=== PATIENT | female | born 1970 | race Caucasian/White ===

== ENCOUNTER 2018-09-22 10:26 | Observation (INO) | payer MEDICAID, SELFPAY ==
[2018-09-22] VITALS (14 sets, daily range): BP systolic 81–118; BP diastolic 57–76; PULSE 7–96; RESP 12–18; TEMP 35.9–38.2; O2SAT 96–100; BMI 23.8
--- NOTE | 2018-09-22 | PATH_ITS ---
[facility] Accession Number: [id number] . 01 Material submitted: . appendix - APPENDIX . 02 Diagnosis: Appendix, Appendectomy: Acute suppurative appendicitis with serositis. No evidence of dysplasia or malignancy. MRV/09/24/2018 . 02 Electronically signed: . Ingris Sykes MD, Pathologist NPI- [id number] . 01 Gross description: . Received in formalin, labeled appendix, is an intact appendix (length-5.2 cm, diameter-0.9 cm) with pale pink smooth shiny serosa and attached mesoappendix (up to 1.3 cm in depth). The resection margin is received stapled. The specimen is partially covered in pale yellow flaky friable exudate. The lumen contains osorio-pink solid paste-like material. The wall is up to 0.3 cm thick. No nodules, masses or lesions are identified. The resection margin is inked black. Section code: (A1) resection margin en face and three additional c s s representative sections; (A2) one-half of the bivalved tip. ([id number]) /MRV . 02 Pathologist provided ICD-10: K35.80 . 02 CPT . 113356 Performed at: 01 [facility] [address], [place], [place] [id number] MD Edin Amor MD Phone: [phone] Performed at: 02 [facility] [address] [place], [place] [id number] MD Ingris Sykes MD Phone: [phone]
[2018-09-22 10:59] LABS: Add Manual Diff / Slide Review NO; Basophils Absolute Auto 0 /uL (0-100); Basophils Percent Auto 0.3 % (0-2); Eosinophils Absolute Auto 0 /uL (0-450); Eosinophils Percent Auto 0.2 % (2-4); Hematocrit 41.2 % (36-46); Hemoglobin 14.1 g/dL (12.0-16.0); Lymphocytes Absolute Auto 1000 /uL (1100-4500); Lymphocytes Percent Auto 8.7 % (25-40); Mean Corpuscular HGB Conc 34.3 % (30-36); Mean Corpuscular Volume 87.4 fL (80-100); Monocytes Absolute Auto 900 /uL (0-900); Monocytes Percent Auto 7.8 % (3-14); Neutrophils Absolute Auto 9300 /uL (1500-7000); Platelet Count 245 X10^3/uL (150-400); Red Blood Cell Count 4.72 X10^6/uL (4.0-5.2); Red Cell Distribution Width 13.4 % (11.6-14.8); White Blood Cell Count 11.2 X10^3/uL (4.5-11.0)
[2018-09-22] MEDS: ONDANSETRON 4 MG/2 ML INJ IV (11:03)
[2018-09-22] MEDS: SODIUM CHLORIDE 0.9% 1,000 ML 1000 ML IV (11:04)
[2018-09-22 11:08] LABS: INR 1.1 (0.9-1.3); Prothrombin Time 12.2 SECONDS (10.1-12.7)
[2018-09-22 11:09] LABS: PTT Partial Thromboplastin Tim 26 SECONDS (26.4-36.2)
[2018-09-22 11:12] LABS: Alanine Aminotransferase 20 IU/L (9-52); Albumin 4.3 g/dL (3.5-5.0); Albumin Globulin Ratio 1.4 (1.0-2.8); Alkaline Phosphatase 47 U/L (38-126); Aspartate Aminotransferase 21 IU/L (14-36); BUN Creatinine Ratio 13.3 (6-22); Bilirubin Total 1.3 mg/dL (0.2-1.3); Blood Urea Nitrogen 8 mg/dL (7-17); Calcium 9.1 mg/dL (8.4-10.2); Carbon Dioxide 27 mmol/L (22-32); Chloride 99 mmol/L (98-107); Estimated Glomerular Filt Rate > 60.0 mL/min (>60); Glucose 113 mg/dL (70-100); HEMOLYSIS 17 (0-50); Lipase 22 U/L (23-300); Potassium 3.9 mmol/L (3.4-5.1); Sodium 135 mmol/L (137-145); Total Protein 7.3 g/dL (6.3-8.2)
--- NOTE | 2018-09-22 11:12 | ED.ABDPAIN ---
HPI - Abdominal Pain General Chief Complaint: Abdominal Pain Stated Complaint: Rt side abd. pain Time Seen by Provider: 09/22/18 11:08 Source: patient Mode of arrival: ambulatory Limitations: no limitations History of Present Illness HPI narrative: 47-year-old female comes in with complaint of about 15 hours of abdominal pain. She noticed start about 4:00 p.m. yesterday. Sort of right lower quadrant, little bit of slight radiation to the back on both sides in a little bit suprapubically. Patient has not had fevers. She has not had chills. She did check with a thermometer at home. She has been slightly nauseated. She had 1 episode of emesis. She has not been particularly hungry. She denies any changes with bowel movements or urination she did have 1 good bowel movement earlier this morning. She states overnight the pain was present but maybe improved a little bit and that has worsened somewhat. She denies any frequency urgency or dysuria. No vaginal bleeding or discharge. She has not had any prior surgeries, she does not take any medications regularly. She denies any tobacco. She does live on [facility]. Her PCP is Nena Watson although she has not seen her [id number]. Related Data Previous Rx's Medication Instructions Recorded acetaminophen 1,000 mg PO Q6H 4 Days #32 cap 09/22/18 oxycodone See Rx Instructions .ROUTE 09/22/18 .COMPLEX PRN #10 tab polyethylene glycol 3350 [Miralax] 17 gram PO DAILY #119 gram 09/22/18 Allergies Allergy/AdvReac Type Severity Reaction Status Date / Time No Known Drug Allergies Allergy Verified 09/22/18 10:39 Review of Systems Review of Systems ROS Unobtainable: All systems reviewed & are unremarkable except as noted in HPI and below Constitutional Denies chills, Denies fever(s), Denies lethargy and Denies weakness Cardiovascular Denies chest pain and Denies dyspnea Respiratory Denies dyspnea Gastrointestinal Gastrointestinal: Reports abdominal pain (RLQ ), Denies melena, Denies hematochezia, Denies change in bowel habits, Denies constipation, Denies diarrhea, Reports nausea and Reports vomiting (x1) Genitourinary Reports as per HPI, Denies abnormal vaginal bleeding, Denies hematuria, Reports urinary frequency (patient states she always has.), Denies dysuria, Reports flank pain (mild bilaterally), Denies urinary incontinence, Denies urinary hesitancy, Denies urinary urgency, Denies vaginal discharge and Denies vaginal odor Musculoskeletal Denies back pain Neurologic Denies weakness FORMERLY [facility], 1928–1983 Medical History Healthy adult (Acute) Surgical History History of third molar tooth extraction Family History (Updated 05/14/16 @ 00:00 by Conversion Provider) Father Age: 79 High cholesterol Mother Age: 77 Lymphoma, unspecified body region, unspecified lymphoma type Social History Smoking Status: Never smoker Family History Father Age: 79 High cholesterol Mother Age: 77 Lymphoma, unspecified body region, unspecified lymphoma type Social History household members: spouse and children Smoking Status: Never smoker Comment: Lives on [facility]. Exam Narrative Exam Narrative: GENERAL: Alert and oriented x three, well-nourished, well-appearing female in mild to moderate distress. HEENT: Head normocephalic, atraumatic, EOMI, pupils reactive, face symmetric, moist mucous membranes NECK: Supple, full range of motion CARDIOVASCULAR: Regular rate and rhythm without murmurs, rubs or gallops. RESPIRATORY: Breath sounds equal bilaterally, no wheezes rales or rhonchi. ABDOMEN: Soft, patient has some mild tenderness periumbilical as well as suprapubically, I would say moderate on the right lower quadrant. Normoactive bowel sounds all 4 quadrants. No guarding or rebound, rigidity, no mass : No CVA tenderness EXTREMITIES: Normal range of motion, no clubbing or edema. Neurovascularly intact NEUROLOGICAL: Cranial nerves II through XII grossly intact. Moving all extremities SKIN: Warm, dry, no petechiae, no rashes or lesions. Initial Vital Signs Initial Vital Signs: Vital Signs Temperature 98.6 F 09/22/18 10:26 Course Orders Ordered: ED Orders 09/22/18 10:30 Urine Microscopic Stat 09/22/18 10:52 Complete Blood Count AUTO DIFF Stat Comprehensive Metabolic Panel Stat Lipase Stat Partial Thromboplastin Time Stat Prothrombin Time INR Stat 09/22/18 11:18 US abdomen limited Stat Hydrocodone Bitart/Acetaminophen ([place] 5/325) 1 tab PO Q30MIN PRN PRN Reason: Mild or moderate pain Fentanyl (Sublimaze) 50 mcg IV Q5MIN PRN PRN Reason: Pain, Moderate (4-6) Hydromorphone HCl (Dilaudid) 0.5 mg IV Q5MIN PRN PRN Reason: Pain, Moderate (4-6) Lactated Ringer's (Lactated Ringers) 1,000 mls @ 42 mls/hr IV NOW ONE Stop: 09/23/18 14:21 Last Admin: 09/22/18 16:24 Dose: 42 mls/hr Infusion: 09/22/18 16:24 Dose: 42 mls/hr Admin: 09/22/18 14:35 Dose: 42 mls/hr Lactated Ringer's (Lactated Ringers) 1,000 mls @ 42 mls/hr IV CONT MOOK Lactated Ringer's (Lactated Ringers) 1,000 mls @ 42 mls/hr IV CONT MOOK Meperidine HCl (Demerol) 25 mg IV Q5MIN PRN PRN Reason: Pain or shivering Ondansetron HCl (Zofran) 4 mg IV NOW PRN PRN Reason: Nausea And Vomiting Oxycodone/Acetaminophen (Percocet 5/325) 1 tab PO Q30MIN PRN PRN Reason: Mild or moderate pain Discontinued Medications Bupivacaine HCl/Epinephrine Bitart (Sensorcaine 0.25% W/ Epi (Pf)) 30 ml INJ NOW ONE Stop: 09/22/18 16:16 Last Admin: 09/22/18 16:16 Dose: 30 ml Sodium Chloride (Normal Saline 0.9%) 1,000 mls @ 1,000 mls/hr IV BOLUS ONE Stop: 09/22/18 12:01 Last Infusion: 09/22/18 12:33 Dose: 0 mls/hr Admin: 09/22/18 11:04 Dose: 1,000 mls/hr Metronidazole (Flagyl) 500 mg in 100 mls @ 100 mls/hr IV NOW ONE Stop: 09/22/18 13:03 Last Infusion: 09/22/18 14:27 Dose: 0 mls/hr Admin: 09/22/18 13:34 Dose: 100 mls/hr Ceftriaxone Sodium/Dextrose (Rocephin) 2 gm in 50 mls @ 100 mls/hr IV NOW ONE Stop: 09/22/18 12:33 Last Infusion: 09/22/18 12:58 Dose: 0 mls/hr Admin: 09/22/18 12:29 Dose: 100 mls/hr Ketorolac Tromethamine (Toradol) 30 mg IV NOW ONE Stop: 09/22/18 11:19 Last Admin: 09/22/18 11:21 Dose: 30 mg Ondansetron HCl (Zofran) 4 mg IV NOW ONE Stop: 09/22/18 11:03 Last Admin: 09/22/18 11:03 Dose: 4 mg Vital Signs - 8 hr 09/22/18 11:23 09/22/18 12:58 09/22/18 13:05 Temperature 98.6 F Pulse Rate 68 71 64 Respiratory Rate 12 12 16 Blood Pressure 99/64 Blood Pressure [Left Arm] 118/76 107/68 Pulse Oximetry 99 98 98 09/22/18 14:29 09/22/18 17:00 09/22/18 17:04 Temperature 100.7 F H 96.7 F L Pulse Rate 69 96 H 86 Respiratory Rate 18 13 13 Blood Pressure 102/69 102/72 90/63 Blood Pressure [Left Arm] Pulse Oximetry 100 99 98 09/22/18 17:09 09/22/18 17:11 09/22/18 17:15 Temperature Pulse Rate 86 96 H 80 Respiratory Rate 12 15 Blood Pressure 81/57 L 94/64 98/68 Blood Pressure [Left Arm] Pulse Oximetry 100 96 09/22/18 17:25 09/22/18 17:40 09/22/18 18:10 Temperature 97.3 F L 98.1 F 99.1 F Pulse Rate 7 L 73 73 Respiratory Rate 12 16 16 Blood Pressure 109/66 111/72 100/63 Blood Pressure [Left Arm] Pulse Oximetry 100 97 96 MDM - Abdominal Pain Lab Data Attestation: I reviewed the patient's lab results. Result diagrams: 09/22/18 10:52 09/22/18 10:52 Lab Results 09/22/18 09/22/18 09/22/18 Range/Units 10:30 10:52 10:52 WBC 11.2 H (4.5-11.0) X10^3/uL RBC 4.72 (4.0-5.2) X10^6/uL Hgb 14.1 (12.0-16.0) g/dL Hct 41.2 (36-46) % MCV 87.4 (80-100) fL MCH 30.0 (26-34) PG MCHC 34.3 (30-36) % RDW 13.4 (11.6-14.8) % Plt Count 245 (150-400) X10^3/uL Neut % (Auto) 83.0 H (50-75) % Lymph % (Auto) 8.7 L (25-40) % [place] % (Auto) 7.8 (3-14) % Eos % (Auto) 0.2 L (2-4) % Baso % (Auto) 0.3 (0-2) % Neut # (Auto) 9300 H (8801-5480) /uL Lymph # (Auto) 1000 L (2737-9593) /uL [place] # (Auto) 900 (0-900) /uL Eos # (Auto) 0 (0-450) /uL Baso # (Auto) 0 (0-100) /uL PT 12.2 (10.1-12.7) SECONDS INR 1.1 (0.9-1.3) APTT 26 L (26.4-36.2) SECONDS Sodium (137-145) mmol/L Potassium (3.4-5.1) mmol/L Chloride (98-107) mmol/L Carbon Dioxide (22-32) mmol/L BUN (7-17) mg/dL Creatinine (0.52-1.04) mg/dL Estimated GFR (>60) mL/min BUN/Creatinine Ratio (6-22) Glucose (70-100) mg/dL Calcium (8.4-10.2) mg/dL Total Bilirubin (0.2-1.3) mg/dL AST (14-36) IU/L ALT (9-52) IU/L Alkaline Phosphatase (38-126) U/L Total Protein (6.3-8.2) g/dL Albumin (3.5-5.0) g/dL Globulin (1.7-4.1) g/dL Albumin/Globulin Ratio (1.0-2.8) Lipase (23-300) U/L Urine RBC None seen (0-5/HPF) Urine WBC None seen (0-5/HPF) Urine Bacteria None seen (None) Urine Mucus 2+ H (Negative) Ur Culture Indicated? Cult not indicated 09/22/18 Range/Units 10:52 WBC (4.5-11.0) X10^3/uL RBC (4.0-5.2) X10^6/uL Hgb (12.0-16.0) g/dL Hct (36-46) % MCV (80-100) fL MCH (26-34) PG MCHC (30-36) % RDW (11.6-14.8) % Plt Count (150-400) X10^3/uL Neut % (Auto) (50-75) % Lymph % (Auto) (25-40) % [place] % (Auto) (3-14) % Eos % (Auto) (2-4) % Baso % (Auto) (0-2) % Neut # (Auto) (2582-6082) /uL Lymph # (Auto) (9297-4328) /uL [place] # (Auto) (0-900) /uL Eos # (Auto) (0-450) /uL Baso # (Auto) (0-100) /uL PT (10.1-12.7) SECONDS INR (0.9-1.3) APTT (26.4-36.2) SECONDS Sodium 135 L (137-145) mmol/L Potassium 3.9 (3.4-5.1) mmol/L Chloride 99 (98-107) mmol/L Carbon Dioxide 27 (22-32) mmol/L BUN 8 (7-17) mg/dL Creatinine 0.60 (0.52-1.04) mg/dL Estimated GFR > 60.0 (>60) mL/min BUN/Creatinine Ratio 13.3 (6-22) Glucose 113 H (70-100) mg/dL Calcium 9.1 (8.4-10.2) mg/dL Total Bilirubin 1.3 (0.2-1.3) mg/dL AST 21 (14-36) IU/L ALT 20 (9-52) IU/L Alkaline Phosphatase 47 (38-126) U/L Total Protein 7.3 (6.3-8.2) g/dL Albumin 4.3 (3.5-5.0) g/dL Globulin 3.0 (1.7-4.1) g/dL Albumin/Globulin Ratio 1.4 (1.0-2.8) Lipase 22 L (23-300) U/L Urine RBC (0-5/HPF) Urine WBC (0-5/HPF) Urine Bacteria (None) Urine Mucus (Negative) Ur Culture Indicated? Point of care testing: Point of Care Testing Test Results Negative Urine Dip Bedside Urine Glucose Negative Bedside Urine Bilirubin - Negative Bedside Urine Ketone +++ 80 Urine Specific [place] 1.025 Bedside Urine Occult Blood +/- Bedside Urine pH 6.0 Bedside Urine Protein +/- 15 Bedside Urine Urobilinogen +/- 1mg Bedside Urine Nitrite - Negative Bedside Urine Leukocytes - Negative Esterase Imaging Data US - abdomen: Radiologist's impression: [address] [address] Ultrasound Report Signed Patient: Ro Montenegro#: [id number] : 1970Acct:[id number] Age/Sex: 47 / FDate of Service: 09/22/18 Loc: ED Accession Number: [id number] Procedure: US abdomen limited Ordering Provider: Brenda Mesa D.O. PROCEDURE: US ABDOMEN LIMITED INDICATIONS: RIGHT LOWER QUADRANT PAIN, ?APPENDICITIS TECHNIQUE: Real-time focused scanning was performed of the abdomen with attention to the appendix, with image documentation. COMPARISON: None. FINDINGS: Appendix visualization: Abnormal appendix partially visualized, distally. The appendix near the cecum could not be seen due to overlying bowel gas. Appendix measurements: Up to 12 mm maximal axial dimension. Associated findings: Echogenic fat: Present Appendiceal compressibility: Absent Appendicoliths: Present Nearby free fluid: Present Lymphadenopathy: Absent Tenderness on exam: Present IMPRESSION: Acute appendicitis, distended to up to 12 mm in diameter with appendicoliths in place. Surgical consultation is recommended. The presence of the pedicle is reportedly increases the risk for early spontaneous appendiceal rupture. Dictated by: Seb Smith M.D. on 09/22/2018 at 12:01 Approved by: Seb Smith M.D. on 09/22/2018 at 12:02 [facility] Narrative Medical decision making narrative: Patient lab work shows a slightly elevated white count, she is symptoms are concerning for appendicitis but she has a little bit of flank pain. Urine is negative as well as point of care urine. Ultrasound of the abdomen was ordered and they were able to see changes consistent with appendicitis. Patient has had Toradol and fluid with improvement of her symptoms. I spoke with Dr. Hernandes from general surgery he accepts. He does ask for 2 g of Rocephin as well as Flagyl 500 IV. These were ordered here in the department. Discharge Plan Departure Patient Disposition: Admitted as Observation Clinical Impression: Acute appendicitis Discharge Date/Time: 09/22/18 13:11 Interventions: ED Discharge Assessment Last Done: 09/22/18 13:11 Admit Date/Time: 09/22/18 12:21 Admit Provider: Rosas Reid
--- NOTE | 2018-09-22 11:18 | DI.US.S_ITS ---
PROCEDURE: US ABDOMEN LIMITED INDICATIONS: RIGHT LOWER QUADRANT PAIN, ?APPENDICITIS TECHNIQUE: Real-time focused scanning was performed of the abdomen with attention to the appendix, with image documentation. COMPARISON: None. FINDINGS: Appendix visualization: Abnormal appendix partially visualized, distally. The appendix near the cecum could not be seen due to overlying bowel gas. Appendix measurements: Up to 12 mm maximal axial dimension. Associated findings: Echogenic fat: Present Appendiceal compressibility: Absent Appendicoliths: Present Nearby free fluid: Present Lymphadenopathy: Absent Tenderness on exam: Present IMPRESSION: Acute appendicitis, distended to up to 12 mm in diameter with appendicoliths in place. Surgical consultation is recommended. The presence of the pedicle is reportedly increases the risk for early spontaneous appendiceal rupture. Dictated by: Seb Smith M.D. on 09/22/2018 at 12:01 Approved by: Seb Smith M.D. on 09/22/2018 at 12:02
[2018-09-22] MEDS: KETOROLAC 60 MG/2 ML VIAL 30 MG IV (11:21)
[2018-09-22 11:22] LABS: Bacteria Urine None Seen; RBC Urine None Seen (0-5/HPF); WBC Urine None Seen (0-5/HPF)
--- NOTE | 2018-09-22 11:23 | ED_ITS ---
HPI - Abdominal Pain General Chief Complaint: Abdominal Pain Stated Complaint: Rt side abd. pain Time Seen by Provider: 09/22/18 11:08 Source: patient Mode of arrival: ambulatory Limitations: no limitations History of Present Illness HPI narrative: 47-year-old female comes in with complaint of about 15 hours of abdominal pain. She noticed start about 4:00 p.m. yesterday. Sort of right lower quadrant, little bit of slight radiation to the back on both sides in a little bit suprapubically. Patient has not had fevers. She has not had chills. She did check with a thermometer at home. She has been slightly nauseated. She had 1 episode of emesis. She has not been particularly hungry. She denies any changes with bowel movements or urination she did have 1 good bowel movement earlier this morning. She states overnight the pain was present but maybe improved a little bit and that has worsened somewhat. She denies any frequency urgency or dysuria. No vaginal bleeding or discharge. She has not had any prior surgeries, she does not take any medications regularly. She denies any tobacco. She does live on [facility]. Her PCP is Nena Watson although she has not seen her [id number]. Related Data Previous Rx's Medication Instructions Recorded acetaminophen 1,000 mg PO Q6H 4 Days #32 cap 09/22/18 oxycodone See Rx Instructions .ROUTE 09/22/18 .COMPLEX PRN #10 tab polyethylene glycol 3350 [Miralax] 17 gram PO DAILY #119 gram 09/22/18 Allergies Allergy/AdvReac Type Severity Reaction Status Date / Time No Known Drug Allergies Allergy Verified 09/22/18 10:39 Review of Systems Review of Systems ROS Unobtainable: All systems reviewed & are unremarkable except as noted in HPI and below Constitutional Denies chills, Denies fever(s), Denies lethargy and Denies weakness Cardiovascular Denies chest pain and Denies dyspnea Respiratory Denies dyspnea Gastrointestinal Gastrointestinal: Reports abdominal pain (RLQ ), Denies melena, Denies hematochezia, Denies change in bowel habits, Denies constipation, Denies diarrhea, Reports nausea and Reports vomiting (x1) Genitourinary Reports as per HPI, Denies abnormal vaginal bleeding, Denies hematuria, Reports urinary frequency (patient states she always has.), Denies dysuria, Reports flank pain (mild bilaterally), Denies urinary incontinence, Denies urinary hesitancy, Denies urinary urgency, Denies vaginal discharge and Denies vaginal odor Musculoskeletal Denies back pain Neurologic Denies weakness [facility] Medical History Healthy adult (Acute) Surgical History History of third molar tooth extraction Family History (Updated 05/14/16 @ 00:00 by Conversion Provider) Father Age: 79 High cholesterol Mother Age: 77 Lymphoma, unspecified body region, unspecified lymphoma type Social History Smoking Status: Never smoker Family History Father Age: 79 High cholesterol Mother Age: 77 Lymphoma, unspecified body region, unspecified lymphoma type Social History household members: spouse and children Smoking Status: Never smoker Comment: Lives on [facility]. Exam Narrative Exam Narrative: GENERAL: Alert and oriented x three, well-nourished, well- appearing female in mild to moderate distress. HEENT: Head normocephalic, atraumatic, EOMI, pupils reactive, face symmetric, moist mucous membranes NECK: Supple, full range of motion CARDIOVASCULAR: Regular rate and rhythm without murmurs, rubs or gallops. RESPIRATORY: Breath sounds equal bilaterally, no wheezes rales or rhonchi. ABDOMEN: Soft, patient has some mild tenderness periumbilical as well as suprapubically, I would say moderate on the right lower quadrant. Normoactive bowel sounds all 4 quadrants. No guarding or rebound, rigidity, no mass : No CVA tenderness EXTREMITIES: Normal range of motion, no clubbing or edema. Neurovascularly intact NEUROLOGICAL: Cranial nerves II through XII grossly intact. Moving all extremities SKIN: Warm, dry, no petechiae, no rashes or lesions. Initial Vital Signs Initial Vital Signs: Vital Signs Temperature 98.6 F 09/22/18 10:26 Course Orders Ordered: ED Orders 09/22/18 10:30 Urine Microscopic Stat 09/22/18 10:52 Complete Blood Count AUTO DIFF Stat Comprehensive Metabolic Panel Stat Lipase Stat Partial Thromboplastin Time Stat Prothrombin Time INR Stat 09/22/18 11:18 US abdomen limited Stat Hydrocodone Bitart/Acetaminophen ([place] 5/325) 1 tab PO Q30MIN PRN PRN Reason: Mild or moderate pain Fentanyl (Sublimaze) 50 mcg IV Q5MIN PRN PRN Reason: Pain, Moderate (4-6) Hydromorphone HCl (Dilaudid) 0.5 mg IV Q5MIN PRN PRN Reason: Pain, Moderate (4-6) Lactated Ringer's (Lactated Ringers) 1,000 mls @ 42 mls/hr IV NOW ONE Stop: 09/23/18 14:21 Last Admin: 09/22/18 16:24 Dose: 42 mls/hr Infusion: 09/22/18 16:24 Dose: 42 mls/hr Admin: 09/22/18 14:35 Dose: 42 mls/hr Lactated Ringer's (Lactated Ringers) 1,000 mls @ 42 mls/hr IV CONT MOOK Lactated Ringer's (Lactated Ringers) 1,000 mls @ 42 mls/hr IV CONT MOOK Meperidine HCl (Demerol) 25 mg IV Q5MIN PRN PRN Reason: Pain or shivering Ondansetron HCl (Zofran) 4 mg IV NOW PRN PRN Reason: Nausea And Vomiting Oxycodone/Acetaminophen (Percocet 5/325) 1 tab PO Q30MIN PRN PRN Reason: Mild or moderate pain Discontinued Medications Bupivacaine HCl/Epinephrine Bitart (Sensorcaine 0.25% W/ Epi (Pf)) 30 ml INJ NOW ONE Stop: 09/22/18 16:16 Last Admin: 09/22/18 16:16 Dose: 30 ml Sodium Chloride (Normal Saline 0.9%) 1,000 mls @ 1,000 mls/hr IV BOLUS ONE Stop: 09/22/18 12:01 Last Infusion: 09/22/18 12:33 Dose: 0 mls/hr Admin: 09/22/18 11:04 Dose: 1,000 mls/hr Metronidazole (Flagyl) 500 mg in 100 mls @ 100 mls/hr IV NOW ONE Stop: 09/22/18 13:03 Last Infusion: 09/22/18 14:27 Dose: 0 mls/hr Admin: 09/22/18 13:34 Dose: 100 mls/hr Ceftriaxone Sodium/Dextrose (Rocephin) 2 gm in 50 mls @ 100 mls/hr IV NOW ONE Stop: 09/22/18 12:33 Last Infusion: 09/22/18 12:58 Dose: 0 mls/hr Admin: 09/22/18 12:29 Dose: 100 mls/hr Ketorolac Tromethamine (Toradol) 30 mg IV NOW ONE Stop: 09/22/18 11:19 Last Admin: 09/22/18 11:21 Dose: 30 mg Ondansetron HCl (Zofran) 4 mg IV NOW ONE Stop: 09/22/18 11:03 Last Admin: 09/22/18 11:03 Dose: 4 mg Vital Signs - 8 hr 09/22/18 11:23 09/22/18 12:58 09/22/18 13:05 Temperature 98.6 F Pulse Rate 68 71 64 Respiratory Rate 12 12 16 Blood Pressure 99/64 Blood Pressure [Left Arm] 118/76 107/68 Pulse Oximetry 99 98 98 09/22/18 14:29 09/22/18 17:00 09/22/18 17:04 Temperature 100.7 F H 96.7 F L Pulse Rate 69 96 H 86 Respiratory Rate 18 13 13 Blood Pressure 102/69 102/72 90/63 Blood Pressure [Left Arm] Pulse Oximetry 100 99 98 09/22/18 17:09 09/22/18 17:11 09/22/18 17:15 Temperature Pulse Rate 86 96 H 80 Respiratory Rate 12 15 Blood Pressure 81/57 L 94/64 98/68 Blood Pressure [Left Arm] Pulse Oximetry 100 96 09/22/18 17:25 09/22/18 17:40 09/22/18 18:10 Temperature 97.3 F L 98.1 F 99.1 F Pulse Rate 7 L 73 73 Respiratory Rate 12 16 16 Blood Pressure 109/66 111/72 100/63 Blood Pressure [Left Arm] Pulse Oximetry 100 97 96 MDM - Abdominal Pain Lab Data Attestation: I reviewed the patient's lab results. Result diagrams: 09/22/18 10:52 09/22/18 10:52 Lab Results 09/22/18 09/22/18 09/22/18 Range/Units 10:30 10:52 10:52 WBC 11.2 H (4.5-11.0) X10^3/uL RBC 4.72 (4.0-5.2) X10^6/uL Hgb 14.1 (12.0-16.0) g/dL Hct 41.2 (36-46) % MCV 87.4 (80-100) fL MCH 30.0 (26-34) PG MCHC 34.3 (30-36) % RDW 13.4 (11.6-14.8) % Plt Count 245 (150-400) X10^3/uL Neut % (Auto) 83.0 H (50-75) % Lymph % (Auto) 8.7 L (25-40) % [place] % (Auto) 7.8 (3-14) % Eos % (Auto) 0.2 L (2-4) % Baso % (Auto) 0.3 (0-2) % Neut # (Auto) 9300 H (1147-9314) /uL Lymph # (Auto) 1000 L (0833-2267) /uL [place] # (Auto) 900 (0-900) /uL Eos # (Auto) 0 (0-450) /uL Baso # (Auto) 0 (0-100) /uL PT 12.2 (10.1-12.7) SECONDS INR 1.1 (0.9-1.3) APTT 26 L (26.4-36.2) SECONDS Sodium (137-145) mmol/L Potassium (3.4-5.1) mmol/L Chloride (98-107) mmol/L Carbon Dioxide (22-32) mmol/L BUN (7-17) mg/dL Creatinine (0.52-1.04) mg/dL Estimated GFR (>60) mL/min BUN/Creatinine Ratio (6-22) Glucose (70-100) mg/dL Calcium (8.4-10.2) mg/dL Total Bilirubin (0.2-1.3) mg/dL AST (14-36) IU/L ALT (9-52) IU/L Alkaline Phosphatase (38-126) U/L Total Protein (6.3-8.2) g/dL Albumin (3.5-5.0) g/dL Globulin (1.7-4.1) g/dL Albumin/Globulin Ratio (1.0-2.8) Lipase (23-300) U/L Urine RBC None seen (0-5/HPF) Urine WBC None seen (0-5/HPF) Urine Bacteria None seen (None) Urine Mucus 2+ H (Negative) Ur Culture Indicated? Cult not indicated 09/22/18 Range/Units 10:52 WBC (4.5-11.0) X10^3/uL RBC (4.0-5.2) X10^6/uL Hgb (12.0-16.0) g/dL Hct (36-46) % MCV (80-100) fL MCH (26-34) PG MCHC (30-36) % RDW (11.6-14.8) % Plt Count (150-400) X10^3/uL Neut % (Auto) (50-75) % Lymph % (Auto) (25-40) % [place] % (Auto) (3-14) % Eos % (Auto) (2-4) % Baso % (Auto) (0-2) % Neut # (Auto) (5559-4787) /uL Lymph # (Auto) (9968-1528) /uL [place] # (Auto) (0-900) /uL Eos # (Auto) (0-450) /uL Baso # (Auto) (0-100) /uL PT (10.1-12.7) SECONDS INR (0.9-1.3) APTT (26.4-36.2) SECONDS Sodium 135 L (137-145) mmol/L Potassium 3.9 (3.4-5.1) mmol/L Chloride 99 (98-107) mmol/L Carbon Dioxide 27 (22-32) mmol/L BUN 8 (7-17) mg/dL Creatinine 0.60 (0.52-1.04) mg/dL Estimated GFR > 60.0 (>60) mL/min BUN/Creatinine Ratio 13.3 (6-22) Glucose 113 H (70-100) mg/dL Calcium 9.1 (8.4-10.2) mg/dL Total Bilirubin 1.3 (0.2-1.3) mg/dL AST 21 (14-36) IU/L ALT 20 (9-52) IU/L Alkaline Phosphatase 47 (38-126) U/L Total Protein 7.3 (6.3-8.2) g/dL Albumin 4.3 (3.5-5.0) g/dL Globulin 3.0 (1.7-4.1) g/dL Albumin/Globulin Ratio 1.4 (1.0-2.8) Lipase 22 L (23-300) U/L Urine RBC (0-5/HPF) Urine WBC (0-5/HPF) Urine Bacteria (None) Urine Mucus (Negative) Ur Culture Indicated? Point of care testing: Point of Care Testing Test Results Negative Urine Dip Bedside Urine Glucose Negative Bedside Urine Bilirubin - Negative Bedside Urine Ketone +++ 80 Urine Specific [place] 1.025 Bedside Urine Occult Blood +/- Bedside Urine pH 6.0 Bedside Urine Protein +/- 15 Bedside Urine Urobilinogen +/- 1mg Bedside Urine Nitrite - Negative Bedside Urine Leukocytes - Negative Esterase Imaging Data US - abdomen: Radiologist's impression: [address] [address] Ultrasound Report Signed Patient: Ro Montenegro#: [id number] : 1970Acct:[id number] Age/Sex: 47 / FDate of Service: 09/22/18 Loc: ED Accession Number: [id number] Procedure: US abdomen limited Ordering Provider: Brenda Mesa D.O. PROCEDURE: US ABDOMEN LIMITED INDICATIONS: RIGHT LOWER QUADRANT PAIN, ?APPENDICITIS TECHNIQUE: Real-time focused scanning was performed of the abdomen with attention to the appendix, with image documentation. COMPARISON: None. FINDINGS: Appendix visualization: Abnormal appendix partially visualized, distally. The appendix near the cecum could not be seen due to overlying bowel gas. Appendix measurements: Up to 12 mm maximal axial dimension. Associated findings: Echogenic fat: Present Appendiceal compressibility: Absent Appendicoliths: Present Nearby free fluid: Present Lymphadenopathy: Absent Tenderness on exam: Present IMPRESSION: Acute appendicitis, distended to up to 12 mm in diameter with appendicoliths in place. Surgical consultation is recommended. The presence of the pedicle is reportedly increases the risk for early spontaneous appendiceal rupture. Dictated by: Seb Smith M.D. on 09/22/2018 at 12:01 Approved by: Seb Smith M.D. on 09/22/2018 at 12:02 [facility] Narrative Medical decision making narrative: Patient lab work shows a slightly elevated white count, she is symptoms are concerning for appendicitis but she has a little bit of flank pain. Urine is negative as well as point of care urine. Ultrasound of the abdomen was ordered and they were able to see changes consistent with appendicitis. Patient has had Toradol and fluid with improvement of her symptoms. I spoke with Dr. Hernandes from general surgery he accepts. He does ask for 2 g of Rocephin as well as Flagyl 500 IV. These were ordered here in the department. Discharge Plan Departure Patient Disposition: Admitted as Observation Clinical Impression: Acute appendicitis Discharge Date/Time: 09/22/18 13:11 Interventions: ED Discharge Assessment Last Done: 09/22/18 13:11 Admit Date/Time: 09/22/18 12:21 Admit Provider: Rosas Reid
[2018-09-22 11:26] LABS: Culture Indicated Urine Cult Not Indicated; Mucus Urine 2+ (Negative)
[2018-09-22] MEDS: CEFTRIAXONE 2 GM/50 ML FROZ.PIGGY IV (12:29)
[2018-09-22] MEDS: metroNIDAZOLE 500 MG/100 ML PIGGYBACK 100 MG IV (13:34)
--- NOTE | 2018-09-22 13:58 | PC.NURSE ---
Patient oriented to room and call light. States her abdomen is mill tender washing but feeling more comfortable after the pain medication given in ER. NPO. Plan for surgery today. IV antibiotics as ordered. Patient has friend at bedside. Will continue to follow.
--- NOTE | 2018-09-22 14:25 | PC.NURSE ---
patient picked up for surgery.
[2018-09-22] MEDS: LACTATED RINGERS 1,000 ML 42 ML IV ×2 (14:35→16:24)
--- NOTE | 2018-09-22 14:46 | PM.HP.1 ---
History of Present Illness Date Patient Seen: 09/22/18 Time Patient Seen: 12:00 Chief complaint: Rt side abd. pain Narrative: 27-year-old healthy woman presents with progressive right lower quadrant pain. Patient began yesterday at 5:00 p.m. was generalized within the abdomen around midnight localized to the right lower quadrant and became more significant. Pain is now considerable worsened with movement including jostling, walking. Associated nausea and vomiting. No radiation. In the emergency department patient found to have leukocytosis of 11.12, and on ultrasound a noncompressible appendix dilated to 12 mm. Presence of a fecalith. Patient History Medical History Healthy adult (Acute) Surgical History History of third molar tooth extraction Family History (Updated 05/14/16 @ 00:00 by Conversion Provider) Father Age: 79 High cholesterol Mother Age: 77 Lymphoma, unspecified body region, unspecified lymphoma type Social History Smoking Status: Never smoker Family & Social History Family History Father Age: 79 High cholesterol Mother Age: 77 Lymphoma, unspecified body region, unspecified lymphoma type Social History: household members spouse,children Prior Living Arrangements House Safety & Behavioral: Feels Safe in Current Yes Environment Been Physically Hurt or No Threatened By a Person Suicidal Ideation Description None Suicide Plan Description No Plan Tobacco & Substance use: Smoking Status Never smoker alcohol intake frequency holiday/special occasion Substance Use Type does not use Meds Home Medications Medication Instructions Recorded Confirmed Type No Known Home Medications 09/22/18 09/22/18 History Allergies Allergy/AdvReac Type Severity Reaction Status Date / Time No Known Drug Allergies Allergy Verified 09/22/18 10:39 Review of Systems Constitutional Constitutional: Denies fever(s) Eyes Eyes: Denies bulging eyes ENT Ears, Nose, Mouth, and Throat: No lip swelling Cardiovascular Cardiovascular: Denies generalize swelling Respiratory Respiratory: Denies stridor Gastrointestinal Gastrointestinal: Denies coffee ground emesis Musculoskeletal Musculoskeletal: Denies loss of height Integumentary/Breasts Skin/Breast: Denies wounds Neurologic Neurologic: Denies abnormal speech and Denies confusion Psychiatric Psychiatric: Denies confusion Endocrine Endocrine: Denies deepening of the voice Hematologic/Lymphatic Hematologic/Lymphatic: Denies lymphadenopathy Allergic/Immunologic Allergic/Immunologic: Denies lip swelling Exam Vital Signs (past 8 hours): - 09/22/18 10:26 09/22/18 10:37 09/22/18 11:23 Temperature 98.6 F Pulse Rate 70 68 Respiratory Rate 15 12 Blood Pressure Blood Pressure [Left Arm] 116/74 118/76 Pulse Oximetry 97 99 09/22/18 12:58 09/22/18 13:05 09/22/18 14:29 Temperature 98.6 F 100.7 F H Pulse Rate 71 64 69 Respiratory Rate 12 16 18 Blood Pressure 99/64 102/69 Blood Pressure [Left Arm] 107/68 Pulse Oximetry 98 98 100 Oxygen Delivery Method Room Air Oxygen Flow Rate 0 Const General: cooperative and healthy appearing Orientation: alert [facility] Head: normal to inspection Nose: nares normal Mouth: oral mucosae normal and lip normal Eyes Eyelids: eyelids normal Conjunctivae: conjunctivae normal Sclera: sclerae normal Neck Neck: supple and other (No thyromegally) Chest Chest: other (LCTAB , regular respiratory effort) Cardio Rhythm: regular rhythm Heart Sounds: S1 normal, S2 normal, no gallops, no murmurs and no rubs GI Other: Abdomen without surgical scars, nondistended, dull to percussion, tender to percussion the right lower quadrant. No hepatosplenomegaly. Normoactive bowel sounds. Tenderness at McBurney point. Positive Rovsing sign. Negative bed shake test, no reflexive guarding Skin General: no rashes or lesions noted Neuro General: alert and awake Psych Appearance: grossly normal Affect: normal affect Objective Labs Result Diagrams: 09/22/18 10:52 09/22/18 10:52 Labs: Laboratory Results - last 24 hr 09/22/18 09/22/18 09/22/18 10:30 10:52 10:52 WBC 11.2 H RBC 4.72 Hgb 14.1 Hct 41.2 MCV 87.4 MCH 30.0 MCHC 34.3 RDW 13.4 Plt Count 245 Neut % (Auto) 83.0 H Lymph % (Auto) 8.7 L [place] % (Auto) 7.8 Eos % (Auto) 0.2 L Baso % (Auto) 0.3 Neut # (Auto) 9300 H Lymph # (Auto) 1000 L [place] # (Auto) 900 Eos # (Auto) 0 Baso # (Auto) 0 PT 12.2 INR 1.1 APTT 26 L Sodium Potassium Chloride Carbon Dioxide BUN Creatinine Estimated GFR BUN/Creatinine Ratio Glucose Calcium Total Bilirubin AST ALT Alkaline Phosphatase Total Protein Albumin Globulin Albumin/Globulin Ratio Lipase Urine RBC None seen Urine WBC None seen Urine Bacteria None seen Urine Mucus 2+ H Ur Culture Indicated? Cult not indicated 09/22/18 10:52 WBC RBC Hgb Hct MCV MCH MCHC RDW Plt Count Neut % (Auto) Lymph % (Auto) [place] % (Auto) Eos % (Auto) Baso % (Auto) Neut # (Auto) Lymph # (Auto) [place] # (Auto) Eos # (Auto) Baso # (Auto) PT INR APTT Sodium 135 L Potassium 3.9 Chloride 99 Carbon Dioxide 27 BUN 8 Creatinine 0.60 Estimated GFR > 60.0 BUN/Creatinine Ratio 13.3 Glucose 113 H Calcium 9.1 Total Bilirubin 1.3 AST 21 ALT 20 Alkaline Phosphatase 47 Total Protein 7.3 Albumin 4.3 Globulin 3.0 Albumin/Globulin Ratio 1.4 Lipase 22 L Urine RBC Urine WBC Urine Bacteria Urine Mucus Ur Culture Indicated? Assessment & Plan Assessment & Plan narrative: 47-year-old healthy woman who presents with under 24 hours of abdominal pain now localized to the right lower quadrant with a history, exam, and ultrasound findings diagnostic of acute appendicitis. She has some free fluid on ultrasound which raises the possibility of perforation however the remainder for data is inconsistent with a perforated appendix. Plan: Metronidazole and ceftriaxone in the emergency department Schedule for laparoscopic appendectomy possible conversion to open Risks and benefits of surgery including bleeding, infection, injury to adjacent structures including blood vessels and ureter all discussed
--- NOTE | 2018-09-22 16:10 | SUR.OPER ---
Supine on padded OR bed, head on pillow, right arm secured on padded arm boards at <90 degrees abduction, left arm is tucked, legs uncrossed, safety belt at thigh, tape over blanket over lower legs.
[2018-09-22] MEDS: BUPIVACAINE 0.25% W/ EPI 30 ML VIAL INJ (16:16)
--- NOTE | 2018-09-22 17:09 | SUR.PHASEI ---
Pt mostly sleeping. Arouses easily but falls asleep quickly. Turned self to Lt side. IV wide open per Dr. Jerez.
--- NOTE | 2018-09-22 17:20 | PM.OP.1 ---
Operative Date/Time/Diagnoses Date of procedure: 09/22/18 Time of procedure: 17:21 Pre-op diagnosis: Acute appendicitis Post-op diagnosis: other (Acute non perforated appendicitis) Procedure & Clinicians Procedure: Laparoscopic appendectomy, pelvic washout Same procedure as scheduled: Yes Indications: Healthy 47-year-old woman presented to the emergency department with approximately 18 hours of abdominal pain localized to the right lower quadrant. She was found to have a mild leukocytosis and a ultrasound demonstrating a dilated noncompressible appendix with a fecalith. She was taken to the operating room Surgeon: John Hernandes Click Yes if Unassisted: Yes Anesthesia Type: General Operative Notes Findings: 1) acute, non perforated, non gangrenous appendicitis 2) some purulence fluid in the pelvis -washed out Closure Type: primary Specimen(s): other (Appendix) Estimated Blood Loss (mL): 5 Procedure in detail: The patient was brought to the operating room she was intubated without incident. She was prepped and draped in the usual sterile fashion, in a time-out was completed. Entry into the abdomen was performed using Mcleod cutdown technique. A curvilinear incision was carried through the superior aspect of the umbilical crown. The umbilical stock was identified grasped and elevated tenting up the linea alba which was grasped with Kristan clamp. With a Kristan clamp elevated, 2 retention sutures were placed on either side of the linea alba. The clamps were removed the retention sutures were brought tot in the linea alba was split with a scalpel. A blunt clamp facilitated entry into the peritoneum. An S retractor was placed into the peritoneum and used to guide placement of the Mcleod trocar abdomen was insufflated without incident. Two 5 mm ports were then placed 1 in the left lower quadrant and the other in the suprapubic region being careful to avoid the dome of the bladder. Inspecting the right lower quadrant of the colon was readily identified this was traced inferiorly and a single loop of small bowel was seen adhered to the cecum -with inflammatory adhesion. These were easily fracture through using laparoscopic instruments and the underlying appendix was identified. A mobile Rico's veil was also encasing the appendix this was easily peeled off as well. The appendix itself was inspected was found to be significantly inflamed with some purulence serous itis but no areas of gangrene and no perforation. The mesoappendix was then grasped and elevated and a small window was placed in the mesoappendix near the appendix's junction with the cecum. A 2.5 mm staple load was then used to divide the mesoappendix and a 3.5 mm staple load was used to divide the appendix off the cecum taking within a small cuff, perhaps 1-2 mm of cecum. The appendix was placed in Endo-Catch bag and later removed from the abdomen via the umbilical port. The remainder of the abdomen and pelvis was inspected there was a small to moderate amount of purulent fluid within the pelvis/pouch of Tee. This was suctioned out and then irrigated using 1 L of normal saline. The effluent at the conclusion of the irrigation returned clear. At this point hemostasis was inspected found to be excellent, ports were withdrawn under direct visualization. The abdomen was deinsufflated the Mcleod port was removed with a the appendix in the Endo-Catch bag. The umbilical port site was then closed using a [id number] 0 Vicryl suture and by tying together the retention sutures. Port sites were washed out, local irrigation was infiltrated, and skin was closed using monofilament absorbable suture in a subcuticular fashion. Skin glue was applied. the patient was extubated and brought to PACU without incident Complications: none Condition: stable Disposition: PACU Plan for aftercare: Floor and then home
--- NOTE | 2018-09-22 17:27 | SUR.PHASEI ---
Report called to Dejah
--- NOTE | 2018-09-22 19:57 | PC.NURSE ---
Discharge Note Pt A&O, VSS, RA, no complaints of pain or discomfort. Pt given discharge instructions/follow-up, no questions or concerns. Pt belongings packed and given to spouse along w/ discharge paperwork. Pt taken down via wheelchair to personal vehicle.
== END 2018-09-22 19:30 | disposition home or self-care (01) ==
LOC: ED 12:05 → AC 12:25
PROVIDERS: Admitting Provider Anesthesiology; Emergency Provider Emergency Medicine; Visit Provider Surgery
PROC: 0DTJ4ZZ Resection of Appendix, Percutaneous Endoscopic Approach (ICD-10-PCS; CPT 44970; principal; 2018-09-22 14:30)
DX: R10.31 Right lower quadrant pain (principal); K35.80 Unspecified acute appendicitis
CPT/HCPCS: 44970; 36591; 76705; 80053; 81003; 81015; 81025; 83690; 85025; 85610; 85730; 96361; 96365; 96367; 96375; 99220; 99283; 99284; G0378; J0330; J0696; J1100; J1885; J2405; J2704; J3010

== ENCOUNTER → 2025-01-18 11:15 | Outpatient (CLI) | payer OTHER, SELFPAY ==
[2018-09-22 12:54] VITALS: BMI 23.8
--- NOTE | 2025-01-18 11:17 | DI.MG.S_ITS ---
MM screening mammo BI: 01/18/2025. BI-RADS: 1 CLINICAL: 54-year old female for bilateral screening mammogram. Tyrer-Cuzick lifetime risk of 14.6%. No personal or first-degree family history of breast cancer. PRIOR EXAMS: None. This is a baseline mammogram. MAMMOGRAPHY TECHNIQUE: 2D and 3D (tomosynthesis) digital mammographic views obtained, with additional images as needed for full coverage. Current study was also evaluated with a Computer Aided Detection (CAD) system. DENSITY D. The breasts are extremely dense, which lowers the sensitivity of mammography. MAMMOGRAPHY FINDINGS Bilateral: No suspicious mass, asymmetry, microcalcification, or other abnormality seen. IMPRESSION: * No evidence of malignancy. RECOMMENDATIONS Bilateral * Annual screening mammography. OVERALL ASSESSMENT CATEGORY BI-RADS-1: Negative. The [employer] recommends annual screening mammography beginning at age 40 for women with average risk of breast cancer. ELECTRONICALLY SIGNED: Kat Bernard M.D. on 01/18/2025 at 02:14:58 PM PT Interpreting Station ID: [id number]
== END ==
LOC: MAMMO 11:17
PROVIDERS: PCP Nurse Practitioner Adult Health; Referring Provider Nurse Practitioner Adult Health; Visit Provider Nurse Practitioner Adult Health
DX: Z12.31 Encounter for screening mammogram for malignant neoplasm of breast (principal); R92.343 Mammographic extreme density, bilateral breasts
CPT/HCPCS: 77063; 77067

== ENCOUNTER → 2025-01-29 11:16 | Outpatient (CLI) | payer OTHER, SELFPAY ==
[2018-09-22 12:54] VITALS: BMI 23.8
--- NOTE | 2025-01-29 11:17 | DI.US.S_ITS ---
PROCEDURE: US PELVIC COMPLETE INDICATIONS: x 4 week onset, hx of polyps TECHNIQUE: Real-time scanning was performed of the pelvic organs, with image documentation. Additional endovaginal scanning was necessary due to incomplete visualization of the adnexal and endometrial structures by transabdominal scanning. COMPARISON: None. FINDINGS: Uterus: 8.1 x 4.5 x 4.9 cm. Anteverted positioning. Endometrium measures 3 mm. Ovaries: Right ovary measures 6 cc. Left ovary measures 6 cc. There are follicular cysts bilaterally measuring up to 1.6 cm on the left. Other: No pathologic free fluid IMPRESSION: Nonthickened endometrium. No discrete endometrial lesion seen by ultrasound. Nonenlarged ovaries Dictated by: Alistair Briones M.D. on 01/29/2025 at 12:22 Approved by: Alistair Briones M.D. on 01/29/2025 at 12:23
== END ==
LOC: US 11:16
PROVIDERS: PCP Family Medicine; Referring Provider Family Medicine; Visit Provider Nurse Practitioner Adult Health
DX: R10.20 Pelvic and perineal pain unspecified side (principal)
CPT/HCPCS: 76830; 76856